=== PATIENT | female | born 1995 | race Caucasian/White ===

== ENCOUNTER → 2024-05-25 | Outpatient (CLI) | payer OTHER ==
[~2024-05-25] VITALS: Ht 167.6 cm; Wt 64.1 kg
[~2024-05-25] MED LIST: LR 1,000 ML IV PRN
--- NOTE | 2024-05-25 19:17 | NUR ---
PT PRESENTS TO L&D WITH C/O NOT FEELING THE BABY MOVING AFTER SHE FELL YESTERDAY ON HER KNEE. SHE WAS GOING DOWN ONE STEP AND SHE SLIPPED AND LANDED ON HER KNEE. IT HAS A SMALL SCRAPE BUT NO BLEEDING OR SWELLING. SHE DID NOT LAND ON HER ABD AT ALL. SHE DENIES CONTRACTIONSM BLEEDING OR LEAKING FLUID. SHE WANTED TO COME IN TO CHECK ON THE BABY. MONITORS ON FHR 130-140'S, ACCELS, NO DECELS, CATEGORY 1. AFTER MONITORS WERE PLACED ON PT'S ABD SHE COULD FEEL MOVEMENT.
[2024-05-25 19:30] VITALS: BP 110/58; PULSE 72; TEMP 98.2
--- NOTE | 2024-05-25 19:50 | NUR ---
DR BAXTER NOTIFIED PT IS HERE AFTER A FALL YESTERDAY ON HER KNEE, DECREASED MOVEMENT. FHR 130-140'S, ACCELS, NO DECELS, CATEGORY 1. CTX'S Q 3-4 MINS, PT IS NOT FEELING ANY CTX'S OR CRAMPING. SHE IS NOW FEELING THE BABY MOVING. NO BLEEDING, NO LEAKING FLUID, ORDERS TO WATCH AN HOUR THEN DC TO HOME. HAVE HER DRINK LOTS OF WATER.
[2024-05-25 19:59] VITALS: BP 122/61; PULSE 94
== END ==
LOC: LDRO 19:13
DX: O9A.213 Injury, poisoning and certain other consequences of external causes complicating pregnancy, third trimester (principal); T14.90XA Injury, unspecified, initial encounter; W19.XXXA Unspecified fall, initial encounter; Z3A.29 29 weeks gestation of pregnancy

== ENCOUNTER 2024-08-15 23:09 | Inpatient (IN) | payer MEDICAID ==
[~2024-08-15] VITALS: Ht 167.6 cm; Wt 71.4 kg
--- NOTE | 2024-08-15 23:20 | NUR ---
G1L0. 40.1. Wheeled to LDR 3 with spouse. Clean gown on. EFM and TOCO explained and applied. Pt states she has been estella since 1999 tonight and they just have gotten more intense and closer together. Pt denies leaking of fluids. States she does have some bloody show and has had that since she was checked in the office yesterday by . Pt reports good movement. Plan of care explained to pt who verbalizes her understanding. SVe completed. 2345: at nurses station and updated on pt's status and reviews fhr strip. See physican notification. 0035: SVE /-2, bloody show noted. Pt unsure if wanting to stay an additional hour at this time or go home. Pt off monitor to use restroom. 0045: updated on pt's status. See physican notification. Pt updated on new orders.
[2024-08-16] VITALS (41 sets, daily range): BP systolic 114–163; BP diastolic 57–97; PULSE 70–107; TEMP 97.6–98.3
[2024-08-16] MEDS ORDERED: LR 1,000 ML IV PRN (00:30)
--- NOTE | 2024-08-16 01:37 | NUR ---
SVE 4/80/-2, bloody show noted. Plan of care explained to pt and spouse. 0145: called and updated on pt's status. Admit orders received. See phycian notification. 0218: Iv started and labs obtained via IV site. Pt requesting an epidural at this time. LR bolus infusing without difficulty. 0305: Pieter GAMINO at bedside for epidural placement. Procedure and risks explained to pt who verbalizes her understanding. Pt sitting on edge of bed for procedure. Difficulty tracing FHR due to maternal position. Pulse ox applied and tracing 0311: Single shot administered by Pieter GAMINO. See anesthesia records. 0317: Pt assisted to wedge left position. Plan of care and safety precautions explained to pt and spouse who verbalize their understanding. Call light within reach.
[2024-08-16] MEDS ORDERED: LR 1,000 ML IV SCH (02:00)
[2024-08-16] MEDS ORDERED: LR & Oxytocin 500 ML IV SCH (02:00)
[2024-08-16 02:47] LABS: BASO # 0.1 K/mm3 (0.0-0.2); BASO % 0.3 % (0.0-2.0); EOS % 0.1 % (0.0-4.0); GRAN # 14.1 K/mm3 (1.4-6.5); GRAN % 84.2 % (42.2-75.2); HEMOGLOBIN 12.8 g/dl (12.5-16.0); LYMPH # 1.5 K/mm3 (1.2-3.4); MEAN CELL VOLUME 86 fl (80.0-100.0); MEAN CORPUSCULAR HEMOGLOBIN 30 pg (27-31); MEAN CORPUSCULAR HGB CONC 35 g/dl (33.0-37.0); MEAN PLATELET VOLUME 11.3 fl (7.4-10.4); MONO % 5.8 % (1.7-9.3); PLATELET COUNT 186 K/mm3 (130-400); RED BLOOD COUNT 4.29 M/mm3 (4.10-5.30); REDCELL DISTRIBUTION WIDTH-CV 12.5 % (11.5-14.5)
[2024-08-16] MEDS ORDERED: diphenhydrAMINE 50 MG/ML 1 ML VIAL IV PRN (03:30)
[2024-08-16] MEDS ORDERED: Naloxone 0.4 MG/ML VIAL IV PRN ×2 (03:30→11:45)
[2024-08-16] MEDS ORDERED: Ondansetron 4 MG/2 ML VIAL IV PRN (03:30)
[2024-08-16] MEDS ORDERED: diphenhydrAMINE 25 MG CAP PO PRN (03:30)
[2024-08-16] MEDS ORDERED: ePHEDrine 50 MG/10 ML VIAL IV PRN (03:30)
--- NOTE | 2024-08-16 09:00 | NUR ---
ON UNIT. PATIENT STATUS DISCUSSED. PROVIDER NOTIFIED THAT PATIENT HAS HAD SOME OUTLIER BLOOD PRESSURES 140/82 AND 151/69. PROVIDER NOTED THIS NO NEW ORDERS AT THIS TIME.
--- NOTE | 2024-08-16 09:36 | NUR ---
AT [facility]. R TRACING REVIEWED. PLAN OF CARE DISCUSSED. SVE @ 0937 /0. AROM @ 0946, CLEAR FLUID.
--- NOTE | 2024-08-16 10:04 | NUR ---
PROVIDER ON UNIT AND NOTIFIED THAT SINCE 0900 WHEN PREVIOSULY DISCUSSED PATIENT HAS HAD THREE MORE OUTLIER BLOOS PRESSURES. 169/103, 150/70, AND 160/74. PROVIDER NOTIFIED THAT PATIENT HAS USED EPIDURAL PCEA BUTTON TWICE AND ATTEMPTED SEVERAL POSITION CHANGES WITH NO RELIEF. PROVIDER NOTIFIED THAT ANESTHSIA WAS CALLED. PROVIDER INAGREEANCE WITH THIS.
--- NOTE | 2024-08-16 10:22 | NUR ---
1014 PATIENT DETERMINED TO BE COMPLETE. NURSERY NOTIFIED. ON UNIT AND NOTIFIED. PATIENT CONFIRMS SHE HAS MUCH BETTER PAIN RELIEF SINCE ANESTHESIA CAME IN AND TREATED HER PAIN. 1022 PUSHING EFFORTS INITIATED. 1024 BURNS CATHETER OUT AT THIS TIME.
--- NOTE | 2024-08-16 10:53 | NUR ---
1042 AT BEDSIDE. 1045 PATIENT DETERMIEND TO BE READY FOR DELIVERY. PATIENT SETUP FOR DELIVERY. 1053 OF VIABLE MALE . NUCHAL X1. PLACED ON MOTHER'S ABDOMEN. CARE OF GIVEN TO NURSERY RNIMER. 1058 OF PLACENTA. REPAIR OF RIGHT VAGINAL SULCUS LACERATION, AND 2ND DEGREE MIDLINE PERINEAL LACERATION PER . PITOCIN BOLUS STARTED AT 333ML/HR PER POLICY AND PROTOCOL. FUNDUS FIRM AND BLEEDING WNL.
[2024-08-16] MEDS ORDERED: Magnes Hydrox (MOM) 80 MG/ML 30 ML CUP PO PRN (11:45)
[2024-08-16] MEDS ORDERED: Witch Hazel 50% Pads Bulk TUB TP PRN (11:45)
[2024-08-16] MEDS ORDERED: Acetaminophen 500 MG TAB PO SCH (11:45)
[2024-08-16] MEDS ORDERED: Loratadine 10 MG TAB PO PRN (11:45)
[2024-08-16] MEDS ORDERED: Ibuprofen 800 MG TAB PO SCH (11:45)
[2024-08-16] MEDS ORDERED: Measles/Mumps/Rubella Virus Vaccine Live w Diluent 0.5 ML VIAL SQ SCH (11:45)
[2024-08-16] MEDS ORDERED: Mag/Al Hydrox/Simeth Susp 30 ML CUP PO PRN (11:45)
[2024-08-16] MEDS ORDERED: Phenylephrine/Mineral Oil/Petrolatum 57 GM TUBE RC PRN (11:45)
[2024-08-16] MEDS ORDERED: oxyCODONE 5 MG TAB PO PRN (11:45)
[2024-08-16] MEDS ORDERED: Methylergonovine 0.2 MG/ML 1 ML AMPUL IM ONE (12:15)
--- NOTE | 2024-08-16 12:42 | NUR ---
AT BEDSIDE. DUE TO PATIENT REPORTING INADEQUATE PAIN RELIEF. PROVIDER CONFIRMED THERE WAS NO PRESCENCE OF A HEMATOMA. FUNDUS FIRM AND BLEEDING WNL AT THIS TIME.PROVIDER INSERTED A STERILE GLOVE OF ICE INTO VAGINA TO REDUCE INTERNAL SWELLING.
--- NOTE | 2024-08-16 13:30 | NUR ---
URE ON UNIT AND NOTIFIED OF PATIENT'S CONTINUED HIGH SYSTOLIC BLOOD PRESSURES. PROVIDER NOTIFIED THAT PATIENT REPORTS SHE NOW HAS ADEQUATE PAIN RELIEF. PROVIDER NOTIFIED THAT FUNDUS IS FIRM AND BLEEDING IS WNL. PROVIDER ORDERS TO DRAW LABS. KEITH ARCHULETA RN AT NURSES STATION TO WITNESS ORDERS. CARE OF PATIENT GIVEN TO KEITH ARCHULETA RN AT THIS TIME.
[2024-08-16 16:44] LABS: ALBUMIN 2.5 g/dL (3.5-5.0); BILIRUBIN,TOTAL 0.5 mg/dL (0.2-1.2); CALCIUM 8.3 mg/dL (8.4-10.2); CREATININE, serum 0.68 mg/dL (0.57-1.11); POTASSIUM 3.7 mEq/L (3.5-4.5); TOTAL PROTEIN 5.5 g/dl (6.2-8.1)
[2024-08-16] MEDS ORDERED: Sennosides/Docusate 8.6-50 MG TAB PO SCH (17:00)
[2024-08-16] MEDS ORDERED: MOTRIN 800800 MG/TAB PO (17:48)
[2024-08-16] MEDS ORDERED: traZODone 50 MG TAB PO PRN (21:00)
[2024-08-16] MEDS ORDERED: Rho(D) Imm Globulin 1,500 UNITS (300 MCG)/2 ML SYRINGE IV\\IM SCH (21:35)
[2024-08-16 22:47] LABS: COLLECTION METHOD CLEAN CATCH
[2024-08-16 23:10] LABS: URINE APPEARANCE CLEAR (CLEAR/HAZY); URINE BLOOD 3+ (NEGATIVE); URINE COLOR YELLOW (YELLOW); URINE GLUCOSE NEGATIVE (NEGATIVE); URINE KETONE TRACE (NEGATIVE); URINE NITRATE NEGATIVE (NEGATIVE); URINE PROTEIN(semi-quant) TRACE (NEGATIVE); URINE UROBILINOGEN 0.2 E.U/dL (0.2-1.0)
[2024-08-17 03:00] VITALS: BP 118/75; PULSE 102; TEMP 98.2
[2024-08-17 07:56] VITALS: BP 128/88; PULSE 102; TEMP 97.8
== END 2024-08-17 16:16 | disposition home or self-care (01) | DRG 560 ==
LOC: LDRO 23:09 → LDR 08-16 02:00 → OB 08-16 17:00
PROVIDERS: Obstetrics & Gynecology; Student in an Organized Health Care Education/Training Program; ADMIT Obstetrics & Gynecology
PROC: 10E0XZZ Delivery of Products of Conception, External Approach (ICD-10-PCS; principal; 2024-08-16)
PROC: 0KQM0ZZ Repair Perineum Muscle, Open Approach (ICD-10-PCS; 2024-08-16)
PROC: 10907ZC Drainage of Amniotic Fluid, Therapeutic from Products of Conception, Via Natural or Artificial Opening (ICD-10-PCS; 2024-08-16)
PROC: 3E033VJ Introduction of Other Hormone into Peripheral Vein, Percutaneous Approach (ICD-10-PCS; 2024-08-16)
PROC: 3E0234Z Introduction of Serum, Toxoid and Vaccine into Muscle, Percutaneous Approach (ICD-10-PCS; 2024-08-17)
DX: O48.0 Post-term pregnancy (principal); Z37.0 Single live birth; O70.1 Second degree perineal laceration during delivery; O26.893 Other specified pregnancy related conditions, third trimester; O99.02 Anemia complicating childbirth; D64.9 Anemia, unspecified; O69.81X0 Labor and delivery complicated by cord around neck, without compression, not applicable or unspecified; Z3A.40 40 weeks gestation of pregnancy
CPT/HCPCS: J2210; J2791; J7120